=== PATIENT | female | born 1985 | race Two or more races ===

== ENCOUNTER 2019-04-04 21:35 | Outpatient (CLI) | payer BC ==
[2019-04-05 00:05] VITALS: BP 131/79; PULSE 100; RESP 16; TEMP 97.8
--- NOTE | 2019-04-29 11:42 | P.MSEPDOC ---
Presenting Problems - Arrival Data Date of Arrival on Unit: 04/04/19 Time of Arrival on Unit: 21:35 Mode of Transport: Ambulatory - Complaint OB-Reason for Admission/Chief Complaint: Rule Out SROM Comment: pt states she began leaking around 2030 Medical History - Information : 1 Para: 0 Term: 0 : 0 Abortions: Spontaneous or Elective: 0 Number of Living Children: 0 - Gestational Age Gestational Age by GREGORY (wks/days): 38 Weeks and 1 Days Review of Systems - Review of Systems Constitutional: No problems Breast: No problems ENT: No problems Cardiovascular: No problems Respiratory: No problems Gastrointestinal: No problems Genitourinary: No problems Musculoskeletal: No problems Neurological: No problems Skin: No problems Vital Signs - Temperature Temperature: 97.8 F Temperature Source: Temporal Artery Scan - Pulse Pulse Oximetery Pulse Rate: 100 Pulse Assessment Method: Pulse Oximetry - Respirations Respiratory Rate: 16 Oxygen Delivery Method: Room Air O2 Sat by Pulse Oximetry: 96 - Blood Pressure Right Arm Blood Pressure: 131/79 Blood Pressure Mean: 96 Blood Pressure Source: Automatic Cuff Medical Screen Scoring (Pre) - Cervical Exam Dilation: 4-7 cm = 2 Effacement: More than 50% = 2 Membranes: Intact - Uterine Contractions Frequency: > 5 minutes apart = 1 Duration: > 40 seconds = 2 Intensity: N/A - Maternal Vital Signs Maternal Temperature: N/A Maternal Blood Pressure: N/A Signs of Preeclampsia: N/A Maternal Respirations: N/A - Maternal Trauma Maternal Trauma: N/A - Assessment - Baby A Baseline FHR: 135 Heart Rate - NICHD Category: Category I (Normal) = 0 NST: Reactive Position: N/A Station: N/A - Total Score - Baby A Total Score - Baby A: 7 - Total Score - Baby B Total Score - Baby B: 7 - Total Score - Baby C Total Score - Baby C: 7 - Level of Risk - Baby A Level of Risk - Baby A: Medium (6-9) - Level of Risk - Baby B Level of Risk - Baby B: Medium (6-9) - Level of Risk - Baby C Level of Risk - Baby C: Medium (6-9) Physician Notification (Pre) - Physician Notified Physician Notified Date: 04/05/19 Physician Notified Time: 22:20 New Order Received: Yes - Notification Comment Comment: Dr. Lundberg called on cell. Report given on maternal/ status, complaints. of leaking since 2029, negative amnisure, sterile vag exam 4.5/70%/-1, bloody mucus noted on swab and exam. Pt reports starting to feel some contractions but denies pain. Pt is jossue irregularly at this time. NST is reactive. Orders to recheck pt in 1 hour from 1st check and discharge if dilation is unchanged. Disposition - Disposition OB Disposition: Discharge to home Discharge Date: 04/05/19 Discharge Time: 23:24 I agree with the RN Medical Screening Exam: Yes Risk & Benefit of care provided described in d/c instruction: Yes Diagnosis: False labor
== END 2019-04-04 23:24 | disposition home or self-care (01) ==
LOC: FBPOP 21:35
PROVIDERS: ATTEND Obstetrics & Gynecology
DX: O47.1 False labor at or after 37 completed weeks of gestation (principal); Z3A.38 38 weeks gestation of pregnancy
CPT/HCPCS: 59025; 84112; 99213

== ENCOUNTER 2019-04-05 00:43 | Inpatient (IN) | payer BC ==
--- NOTE | 2019-04-05 01:50 | P.HPOB ---
History of Present Illness H&P Date: 04/05/19 Chief Complaint: Contractions This is a 33-year-old 1 para 0 woman with an estimated due date of 04/18/2019 who presents at 38 and one sevenths weeks gestation with spontaneous painful contractions. She been seen on earlier in the evening on labor and delivery with questionable rupture of membranes. Her cervix at that time was 4+ centimeters dilated however she is not actively jossue and made no cervical change. She was therefore discharged home. Her contractions then ramped up over the next 1-2 hours and she returned to the hospital. On evaluation in labor and delivery triage she was 6 cm dilated. She was therefore admitted. Review of Systems All systems: negative Past Medical History Past Medical History: No Reported History History of Any Multi-Drug Resistant Organisms: None Reported Smoking Status: Never smoker Medications and Allergies Home Medications Medication Instructions Recorded Confirmed Type Pnv No.95/Ferrous Fum/Folic AC 1 each PO DAILY 04/04/19 04/04/19 History [ Multivitamin Tablet] Allergies Allergy/AdvReac Type Severity Reaction Status Date / Time No Known Allergies Allergy Verified 04/04/19 21:46 Assessment and Plan (1) Term Current Visit: Yes Status: Acute Code(s): Z34.90 - ENCNTR FOR SUPRVSN OF NORMAL , UNSP, UNSP TRIMESTER SNOMED Code(s): 06577939 (2) Spontaneous onset of labor Current Visit: Yes Status: Acute Code(s): [id number] - SNOMED Code(s): 80102910 Plan: Admit in labor, see delivery note.
[2019-04-05] MEDS ORDERED: diphenhydrAMINE 50 MG/ML 1 ML VIAL IVP PRN ×2 (01:54)
[2019-04-05] MEDS ORDERED: LANOLIN CREAM 5 GM TUBE TOPICAL PRN (01:54)
[2019-04-05] MEDS ORDERED: HYDROCORTISONE 2.5% RECTAL CREAM 30 GM TUBE RECTAL PRN (01:54)
[2019-04-05] MEDS ORDERED: diphenhydrAMINE 50 MG CAP PO PRN (01:54)
[2019-04-05] MEDS ORDERED: BENZOCAINE/MENTHOL SPRAY 1 GM/SPRAY AEROSOL TOPICAL PRN (01:54)
[2019-04-05] MEDS ORDERED: SIMETHICONE 80 MG CHEWABLE PO PRN (01:54)
[2019-04-05] MEDS ORDERED: WITCH HAZEL 1 EACH MED..PAD TOPICAL PRN (01:54)
[2019-04-05] MEDS ORDERED: ACETAMINOPHEN TAB 325 MG TAB PO PRN (01:54)
[2019-04-05] MEDS ORDERED: ZOLPIDEM 5 MG TAB PO PRN (01:54)
[2019-04-05] MEDS ORDERED: diphenhydrAMINE 25 MG CAP PO PRN (01:54)
--- NOTE | 2019-04-05 01:54 | P.PROBDLV ---
Vaginal Delivery Note - . Vaginal Delivery Note: Findings: Female in the vertex presentation with Apgars of 9 at 1 minute and 9 at 5 minutes weighing 7 lbs. 6 oz., 3345 g. First-degree perineal laceration. Intact three-vessel cord placenta that appears excessively calcified as well as some dark adherent clot to the margin of approximately one quarter of the placenta. EBL 200 mL's. Delivery summary: This is a 33-year-old 1 para 0 woman who was admitted at 38 and one sevenths weeks gestation in spontaneous active labor. She presented to labor and delivery triage and was admitted at 0053 which time she was 6 cm dilated. She denied leakage of fluids but was having some bloody show. By 0109 she was on 9 cm dilated. I was notified to come to labor and delivery at 0112. Patient had spontaneous rupture of membranes at 0116 and had a precipitous delivery attended by the RN at 0122. I arrived on labor and delivery at 0125. After approximately 10 minute third stage of labor she did deliver a intact three-vessel cord placenta with the above findings. The uterus was massaged and was noted to be firm at the level of the umbilicus. The perineum was inspected and a first-degree laceration was noted. This was infused with lidocaine and repaired with 3-0 Vicryl suture. The rest of the v agina and cervix were inspected and no further lacerations were noted. Both mother and infant were doing well post delivery in the room. Of note she is group B strep negative and blood type O+. She is rubella immune.
[2019-04-05] MEDS ORDERED: OXYTOCIN 20 UNITS/1000 ML NS 1,000 ML IV SCH (02:00)
[2019-04-05] MEDS ORDERED: METHYLERGONOVINE 0.2 MG/ML 1 ML AMP IM PRN (02:18)
[2019-04-05] MEDS ORDERED: LIDOCAINE 0.5% (PF) 5 MG/ML (50 ML SDV) SQ PRN (02:18)
[2019-04-05] MEDS ORDERED: CARBOPROST TROMETHAMINE 250 MCG/ML 1 ML AMP IM PRN (02:18)
[2019-04-05] MEDS ORDERED: OXYTOCIN 10 UNIT/ML 1 ML VIAL IM PRN (02:18)
[2019-04-05] MEDS ORDERED: LACTATED RINGERS 1,000 ML IV SCH (02:30)
[2019-04-05 03:22] LABS: Basophils % (A) 0 %; Eosinophils # (A) 0.2 k/uL (0-0.7); Eosinophils % (A) 1 %; HCT 38.4 % (34.0-46.0); HGB 13.3 gm/dL (11.4-16.0); Lymphocytes # (A) 2.7 k/uL (1.0-4.8); Lymphocytes % (A) 15 %; MCH 30.4 pg (25.0-35.0); MCHC 34.6 g/dL (31.0-37.0); MCV 87.9 fL (80.0-100.0); Mean Platelet Volume 8.9; Monocytes # (A) 1.5 k/uL (0-1.0); Monocytes % (A) 8 %; Neutrophils % (A) 74 %; Platelet Count 260 k/uL (150-450); RBC 4.37 m/uL (3.80-5.40); RDW 13.1 % (11.5-15.5); WBC 17.7 k/uL (3.8-10.6)
[2019-04-05] MEDS: IBUPROFEN 600 MG TAB PO PRN ×2 (04:37→20:32)
[2019-04-05] MEDS: SENNOSIDES-DOCUSATE SODIUM 1 EACH TAB PO SCH ×2 (08:25→20:32)
[2019-04-06 06:58] LABS: Basophils % (A) 0 %; Eosinophils # (A) 0.2 k/uL (0-0.7); Eosinophils % (A) 2 %; HCT 39.5 % (34.0-46.0); HGB 12.9 gm/dL (11.4-16.0); Lymphocytes # (A) 2.8 k/uL (1.0-4.8); Lymphocytes % (A) 22 %; MCH 29.5 pg (25.0-35.0); MCHC 32.7 g/dL (31.0-37.0); MCV 90.1 fL (80.0-100.0); Mean Platelet Volume 7.6; Monocytes % (A) 8 %; Neutrophils # (A) 8.4 k/uL (1.3-7.7); Neutrophils % (A) 66 %; Platelet Count 205 k/uL (150-450); RBC 4.38 m/uL (3.80-5.40); RDW 13.3 % (11.5-15.5); WBC 12.8 k/uL (3.8-10.6)
[2019-04-06] MEDS: IBUPROFEN 600 MG TAB PO PRN ×2 (07:54→19:47)
--- NOTE | 2019-04-06 09:53 | P.DS ---
Providers Date of admission: 04/05/19 01:02 Expected date of discharge: 04/06/19 Attending physician: Alejandra Cuevas Primary care physician: Stated None - Discharge Diagnosis(es) (1) Term Current Visit: Yes Status: Acute (2) Spontaneous onset of labor Current Visit: Yes Status: Acute (3) Perineal laceration with delivery, first degree Current Visit: Yes Status: Acute (4) Spontaneous rupture of membranes Current Visit: Yes Status: Acute (5) Normal spontaneous vaginal delivery Current Visit: Yes Status: Acute Hospital Course: This is a 33-year-old 1 now para 1 woman who presented at term in spontaneous active labor after an uncomplicated . She had an extremely rapid progression from 6 cm dilated to delivered in under 30 minutes. Please see the delivery summary for details. She had a liveborn female infant over a first-degree perineal laceration with Apgars of 9 at 1 minute and 9 at 5 minutes weighing 7 lbs. 6 oz. The placenta did appear markedly calcified with some dark adherent clot around 1 edge possibly consistent with the abruption however the patient did not have any notable vaginal bleeding in the lead up to her labor or delivery. Should no other risk factors or hypertension. The patient's course was unremarkable. By day #1 she was feeling very good. She was ambulating and voiding without difficulty. She had minimal lochia and her perineum was well healing. The infant does have elevated bilirubin and is currently being treated with a bili blanket. Assuming that this resolves she is discharged home today with routine instructions for care and follow-up. Patient Condition at Discharge: Good Plan - Discharge Summary New Discharge Prescriptions: No Action Pnv No.95/Ferrous Fum/Folic AC [ Multivitamin Tablet] 1 each PO DAILY Discharge Medication List Pnv No.95/Ferrous Fum/Folic AC [ Multivitamin Tablet] 1 each PO DAILY 04/04/19 [History] Follow up Appointment(s)/Referral(s): Alejandra Cuevas MD [STAFF PHYSICIAN] - 6 Weeks Activity/Diet/Wound Care/Special Instructions: Follow-up in the office in 6 weeks . Call with any concerning signs or symptoms including heavy vaginal bleeding, severe abdominal pain, fever greater than 101, swelling or redness of the lower extremities, foul vaginal discharge, or signs of depression. Nothing in the vagina for 6 weeks after delivery, specifically no intercourse. Discharge Disposition: HOME SELF-CARE
[2019-04-06] MEDS: SENNOSIDES-DOCUSATE SODIUM 1 EACH TAB PO SCH ×2 (11:16→20:12)
[2019-04-07] MEDS: IBUPROFEN 600 MG TAB PO PRN (08:06)
[2019-04-07] MEDS: SENNOSIDES-DOCUSATE SODIUM 1 EACH TAB PO SCH (08:07)
--- NOTE | 2019-04-07 08:30 | P.DS ---
Providers Date of admission: 04/05/19 01:02 Expected date of discharge: 04/07/19 Attending physician: Alejandra Cuevas Primary care physician: Stated None Hospital Course: This is a 33-year-old white female 1 para 0 EDC 04/18/2019 at 38-2/7 weeks' gestation. Patient presented to labor and delivery in active spontaneous labor. is remarkable for blood type O positive, rubella status immune, group B strep cultures negative. Please see admitting H&P for details. Patient went on to swiftly deliver a liveborn female with scores of 9 and 9 at one and 5 minutes respectively. Infant weighed 7 lbs. 6 oz. or 3345 g. Estimated blood loss recorded at 200 mL's. Small first-degree perineal laceration was repaired. Please see dictated delivery note for details. This morning the patient is doing well. She is voiding, ambulating and passing flatus without difficulty. Vital signs are stable and she is afebrile. is doing well. Patient is judged to be in very good condition for discharge home. She will follow-up with me in the office in 6 weeks. I reminded her no intercourse, tampons or douching. She will use [id number] Advil or Aleve, needed for pain. She will call with any fevers shakes or chills, foul smelling or copious lochia, with the passage of large blood clots, with any pain not alleviated by [id number] products, or indeed with any concerns. Patient Condition at Discharge: Good Plan - Discharge Summary Discharge Rx Participant: No New Discharge Prescriptions: No Action Pnv No.95/Ferrous Fum/Folic AC [ Multivitamin Tablet] 1 each PO DAILY Discharge Medication List Pnv No.95/Ferrous Fum/Folic AC [ Multivitamin Tablet] 1 each PO DAILY 04/04/19 [History] Follow up Appointment(s)/Referral(s): Alejandra Cuevas MD [STAFF PHYSICIAN] - 6 Weeks Activity/Diet/Wound Care/Special Instructions: Follow-up in the office in 6 weeks . Call with any concerning signs or symptoms including heavy vaginal bleeding, severe abdominal pain, fever greater than 101, swelling or redness of the lower extremities, foul vaginal discharge, or signs of depression. Nothing in the vagina for 6 weeks after delivery, specifically no intercourse. Discharge Disposition: HOME SELF-CARE
[2019-04-07 08:37] VITALS: BP 130/69; PULSE 93; RESP 16; TEMP 98.7
== END 2019-04-07 09:32 | disposition home or self-care (01) | DRG 807 ==
LOC: FBPOP 00:43 → 4FBP 01:02
PROVIDERS: ADMIT Obstetrics & Gynecology; ATTEND Obstetrics & Gynecology
PROC: 0HQ9XZZ Repair Perineum Skin, External Approach (ICD-10-PCS; principal; 2019-04-05)
PROC: 10E0XZZ Delivery of Products of Conception, External Approach (ICD-10-PCS; principal; 2019-04-05)
DX: O62.3 Precipitate labor (principal); Z37.0 Single live birth; O70.0 First degree perineal laceration during delivery; Z3A.38 38 weeks gestation of pregnancy
CPT/HCPCS: 85025; 86850; 86900; 86901; 88307

== ENCOUNTER → 2024-05-20 | Outpatient (CLI) | payer BC ==
--- NOTE | 2024-05-20 17:51 | MM ---
Reason for Exam: Screening (asymptomatic). Baseline mammogram. Patient History: Menarche at age 11. First Full-Term at age 34. Late child-bearing (after 30). Currently using Hormonal Contraceptives, starting at age 18. Last menstrual period: 05/08/2024 Risk Values: Patti 5 year model risk: 0.8%. NCI Lifetime model risk: 13.6%. Prior Study Comparison: Patient's first Mammogram. No prior studies available for comparison. Tissue Density: The breasts are heterogeneously dense, which may obscure small masses. Findings: Analyzed By CAD. No significant mass, suspicious microcalcification, or other discrete abnormality is seen. Overall Assessment: Negative, BI-RAD 1 Management: Screening Mammogram of both breasts in 1 year. Patient should continue monthly self-breast exams. A clinical breast exam by your physician is recommended on an annual basis. This exam should not preclude additional follow-up of suspicious palpable abnormalities. Note on Patti scores and lifetime risk: 1. A Patti score greater than 3% is considered moderate risk. If this is the case, consider specialist referral to assess eligibility for a risk reducing agent. 2. If overall lifetime risk for the development of breast cancer is 20% or higher, the patient may qualify for future screening with alternating mammogram and breast MRI. [facility], , 05/20/2024 5:48 PM. Electronically signed and approved by: Melanie Atkinson M.D. Radiologist
== END | disposition home or self-care (01) ==
LOC: RADMAMWWP 09:28
PROVIDERS: ATTEND Obstetrics & Gynecology
DX: Z12.31 Encounter for screening mammogram for malignant neoplasm of breast (principal); R92.333 Mammographic heterogeneous density, bilateral breasts
CPT/HCPCS: 77067